=== PATIENT | male | born 1965 | race Caucasian/White ===

== ENCOUNTER 2017-07-02 12:59 | Inpatient (IN) | payer OTHER, MEDICAID ==
[~2017-07-02] VITALS: Ht 188 cm; Wt 85.0 kg
[2017-07-02 13:00] VITALS: O2SAT 100
[2017-07-02 13:06] VITALS: O2SAT 97
[2017-07-02] MEDS ORDERED: DIPHTH/TETANUS/ACEL PERTUSSIS (BOOSTER) 0.5 ML VIAL/PFS IM ONE (13:12)
[2017-07-02] MEDS ORDERED: ceFAZolin 2 GM PREMIX 50 ML ONE (13:12)
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
[2017-07-02] MEDS ORDERED: LIDOCAINE 2%/EPINEPHrine 1:100,000 20ML MDV NERV BLOCK ONE (13:15)
[2017-07-02 13:20] LABS: AUTOMATED NEUTROPHIL # 6.9 TH/MM3 (1.8-7.7); BASOPHIL # 0.1 TH/MM3 (0-0.2); BASOPHIL % 0.6 % (0.0-2.0); EOSINOPHIL # 0.2 TH/MM3 (0-0.4); EOSINOPHIL % 2.2 % (0.0-4.0); HEMO FLAGS DIFF FINAL; LYMPH % 24.3 % (9.0-44.0); LYMPHOCYTE # 2.5 TH/MM3 (1.0-4.8); MEAN CELL VOLUME 88.7 FL (80.0-100.0); MEAN CORPUSCULAR HEMOGLOBIN 29.7 PG (27.0-34.0); MEAN CORPUSCULAR HGB CONC 33.5 % (32.0-36.0); MONO % 6.3 % (0.0-8.0); NEUT % 66.6 % (16.0-70.0); PLATELET COUNT 232 TH/MM3 (150-450); RED BLOOD COUNT 4.63 MIL/MM3 (4.50-5.90); RED CELL DISTRIBUTION WIDTH 13.9 % (11.6-17.2); WHITE BLOOD COUNT 10.4 TH/MM3 (4.0-11.0)
[2017-07-02 13:25] LABS: I-STAT POTASSIUM 4.1 MMOL/L (3.5-4.9); I-STAT SODIUM 142 MMOL/L (138-146)
[2017-07-02 13:29] LABS: APTT (PATIENT) 23.7 SEC (24.3-30.1); PROTHROMBIN TIME - PATIENT 11.3 SEC (9.8-11.6)
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
[2017-07-02 13:42] LABS: ALCOHOL LESS THAN 3 MG/DL (0-5)
[2017-07-02] MEDS ORDERED: IOHEXOL 350 MG/ML 10 ML VIAL (for RAD DIAG) IVCONTRAST ONE (13:51)
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
[2017-07-02 14:00] VITALS: BP 167/79; PULSE 99; RESP 22; O2SAT 99
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
--- NOTE | 2017-07-02 14:45 | RADRPT ---
EXAM DATE/TIME: 07/02/2017 14:13 [facility] COMPARISON: No previous studies available for comparison. INDICATIONS : Left hand,first digit pain post HALFWAY. MEDICAL HISTORY : None. SURGICAL HISTORY : None. ENCOUNTER: Initial ACUITY: 1 day PAIN SCORE: 8/10 LOCATION: Left hand, first digit. FINDINGS: 3 views of the left thumb reveal acute dislocation at the interphalangeal joint. No discrete fracture seen on these images. Soft tissue swelling is mild. CONCLUSION: Interphalangeal joint dislocation at the thumb. Rob Guevara Jr., MD on July 02, 2017 at 14:43 Board Certified Radiologist. This report was verified electronically.
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
--- NOTE | 2017-07-02 15:32 | RADRPT ---
EXAM DATE/TIME: 07/02/2017 15:21 [facility] COMPARISON: FINGER LEFT 1ST DIGIT ([id number]), July 02, 2017, 14:13. INDICATIONS : Post reduction of the left first digit. MEDICAL HISTORY : None. SURGICAL HISTORY : None. ENCOUNTER: Subsequent ACUITY: 1 day PAIN SCORE: 0/10 LOCATION: Left thumb FINDINGS: 2 views of left thumb reveal successful reduction of the previously seen dislocation at the interphal angeal joint. No discrete fracture seen. CONCLUSION: Successful reduction. Rob Guevara Jr., MD on July 02, 2017 at 15:30 Board Certified Radiologist. This report was verified electronically.
[2017-07-02] MEDS ORDERED: ENALAPRILAT 1.25 MG/ML VIAL IV PUSH PRN (17:15)
[2017-07-02] MEDS ORDERED: HYDROmorphone HCL PF 1 MG/ML VIAL IVP PRN (17:15)
[2017-07-02] MEDS ORDERED: ONDANSETRON HCL 4 MG/2 ML VIAL IV PUSH PRN (17:15)
[2017-07-02] MEDS ORDERED: MAGNESIUM HYDROXIDE SUSP 30 ML CUP PO PRN (17:15)
[2017-07-02] MEDS ORDERED: SODIUM CHLORIDE 0.9% FLUSH 10 ML FLUSH IV FLUSH PRN (17:15)
[2017-07-02] MEDS ORDERED: ACETAMINOPHEN/HYDROcodone 325 MG/5 MG TAB PO PRN ×2 (17:15)
[2017-07-02] MEDS: SODIUM CHLOR 0.9% 1000 ML INJ 1,000 ML IV SCH (18:00)
[2017-07-02] MEDS: PANTOPRAZOLE SODIUM 40 MG VIAL IVP SCH (18:00)
[2017-07-02 19:00] VITALS: BP 146/78; PULSE 87; RESP 17; TEMP 97.3; O2SAT 99
[2017-07-02] MEDS ORDERED: LACTULOSE SYRUP 20 GM/30 ML CUP PO PRN (19:15)
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
[2017-07-02] MEDS: DOCUSATE SODIUM 50 MG/SENNA 8.6 MG TAB PO SCH (20:28)
[2017-07-02] MEDS ORDERED: METOPROLOL TARTRATE 25 MG TAB PO PRN (23:45)
[2017-07-02] MEDS ORDERED: POVIDONE IODINE 5% (ANTISEPSIS KIT) 4 APPLICATIONS EACH NARE PRN (23:45)
[2017-07-02] MEDS ORDERED: LACTATED RINGER'S 1000 ML IV PRN (23:45)
[2017-07-02] MEDS ORDERED: SODIUM CHLORID 0.9% 500 ML IV PRN (23:45)
[2017-07-02] MEDS ORDERED: CHLORHEXIDINE GLUCONATE 2 % 1 PACK (2 CLOTHS) TOPICAL PRN (23:45)
[2017-07-02] MEDS ORDERED: INSULIN HUMAN REGULAR 1,000 UNITS/10 ML VIAL SQ PRN (23:45)
[2017-07-03] VITALS (7 sets, daily range): BP systolic 109–138; BP diastolic 61–87; PULSE 78–82; RESP 16–18; TEMP 97–98.3; O2SAT 96–100
[2017-07-03] MEDS: SODIUM CHLOR 0.9% 1000 ML INJ 1,000 ML IV SCH ×3 (05:26→19:44)
[2017-07-03 07:02] LABS: AUTOMATED NEUTROPHIL # 8.6 TH/MM3 (1.8-7.7); BASOPHIL % 0.2 % (0.0-2.0); EOSINOPHIL # 0.1 TH/MM3 (0-0.4); EOSINOPHIL % 0.7 % (0.0-4.0); HEMATOCRIT 37.4 % (39.0-51.0); HEMO FLAGS DIFF FINAL; LYMPH % 21.4 % (9.0-44.0); LYMPHOCYTE # 2.7 TH/MM3 (1.0-4.8); MEAN CELL VOLUME 89.8 FL (80.0-100.0); MEAN CORPUSCULAR HEMOGLOBIN 29.8 PG (27.0-34.0); MEAN CORPUSCULAR HGB CONC 33.2 % (32.0-36.0); MONO % 9.1 % (0.0-8.0); NEUT % 68.6 % (16.0-70.0); PLATELET COUNT 199 TH/MM3 (150-450); RED BLOOD COUNT 4.16 MIL/MM3 (4.50-5.90); RED CELL DISTRIBUTION WIDTH 13.8 % (11.6-17.2); WHITE BLOOD COUNT 12.6 TH/MM3 (4.0-11.0)
[2017-07-03 07:18] LABS: ALT (GPT) 27 U/L (12-78); ANION GAP 7 MEQ/L (5-15); AST (GOT) 17 U/L (15-37); BICARBONATE 23.4 MEQ/L (21.0-32.0); BLOOD UREA NITROGEN 10 MG/DL (7-18); CHLORIDE 108 MEQ/L (98-107); GLOMERULAR FILTRATION RATE 100 ML/MIN (>89); POTASSIUM 3.7 MEQ/L (3.5-5.1); SODIUM (NA) 138 MEQ/L (136-145)
[2017-07-03 07:20] LABS: ALKALINE PHOSPHATASE 60 U/L (45-117); TOTAL BILIRUBIN ADULT 0.6 MG/DL (0.2-1.0)
[2017-07-03] MEDS: DOCUSATE SODIUM 50 MG/SENNA 8.6 MG TAB PO SCH ×2 (09:00→22:51)
--- NOTE | 2017-07-03 12:18 | OTSOAPIP ---
RECEIVED OCCUPATIONAL THERAPY ORDERS. PATIENT IS AWAITING SURGICAL INTERVENTION FOR RIGHT UPPER EXTREMITY THIS DATE. WILL DEFER EVALUATION UNTIL POST SURGERY. INTERDISCIPLINARY COMMUNICATION: REVIEWED ELECTRONIC MEDICAL RECORD Therapist: Marcelle Barnett OTR/L Signature on file
[2017-07-03] MEDS ORDERED: ROCURONIUM INJ 50 MG/5 ML SYRINGE IV PUSH ONE (13:23)
[2017-07-03] MEDS ORDERED: ONDANSETRON HCL 4 MG/2 ML VIAL IV PUSH ONE (13:23)
[2017-07-03] MEDS ORDERED: MIDAZOLAM HCL 2 MG/2 ML VIAL IV ONE (13:23)
[2017-07-03] MEDS ORDERED: PHENYLEPH/NS 1000 MCG/10 ML SYR IV ONE (13:23)
[2017-07-03] MEDS ORDERED: GLYCOPYRROLATE 1 MG/5 ML SYRINGE IV PUSH ONE (13:23)
[2017-07-03] MEDS ORDERED: NEOSTIGMINE 3 MG/3 ML SYR IV ONE (13:23)
[2017-07-03] MEDS ORDERED: DEXAMETHASONE SOD PHOS 4 MG/ML VIAL IV ONE (13:23)
[2017-07-03] MEDS ORDERED: ePHEDrine/NS 25 MG/5 ML SYR IV ONE (13:23)
[2017-07-03] MEDS ORDERED: PROPOFOL 200 MG/20 ML AMP IV ONE (13:23)
[2017-07-03] MEDS ORDERED: LACTATED RINGER'S 1000 ML INJ 1,000 ML IV ONE (13:23)
[2017-07-03] MEDS ORDERED: LIDOCAINE HCL 1% PF 5 ML AMPULE OTHER ONE (13:23)
--- NOTE | 2017-07-03 14:06 | HHI.PR ---
Subjective Subjective Notes Surgery today with Orthopedics Pain controlled Objective Vitals/I&O Vital Signs Date Time Temp Pulse Resp B/P (MAP) Pulse Ox O2 Delivery O2 Flow Rate FiO2 07/03/17 11:29 98.3 81 18 138/80 (99) 97 07/02/17 14:00 Nasal Cannula 2.00 07/02/17 13:06 21 Labs Laboratory Tests Test 07/03/17 05:32 White Blood Count 12.6 Red Blood Count 4.16 Hemoglobin 12.4 Hematocrit 37.4 Mean Corpuscular Volume 89.8 Mean Corpuscular Hemoglobin 29.8 Mean Corpuscular Hemoglobin Concent 33.2 Red Cell Distribution Width 13.8 Platelet Count 199 Mean Platelet Volume 9.8 Neutrophils (%) (Auto) 68.6 Lymphocytes (%) (Auto) 21.4 Monocytes (%) (Auto) 9.1 Eosinophils (%) (Auto) 0.7 Basophils (%) (Auto) 0.2 Neutrophils # (Auto) 8.6 Lymphocytes # (Auto) 2.7 Monocytes # (Auto) 1.2 Eosinophils # (Auto) 0.1 Basophils # (Auto) 0.0 CBC Comment DIFF FINAL Differential Comment Blood Urea Nitrogen 10 Creatinine 0.82 Random Glucose 105 Total Protein 6.9 Albumin 3.5 Calcium Level 8.6 Alkaline Phosphatase 60 Aspartate Amino Transf (AST/SGOT) 17 Alanine Aminotransferase (ALT/SGPT) 27 Total Bilirubin 0.6 Sodium Level 138 Potassium Level 3.7 Chloride Level 108 Carbon Dioxide Level 23.4 Anion Gap 7 Estimat Glomerular Filtration Rate 100 Radiology Last Impressions Finger X-Ray 07/02/17 5592 Signed Impressions: Service Date/Time: Sunday, July 02, 2017 15:21 - CONCLUSION: Successful reduction. Rob Guevara Jr., MD Pelvis X-Ray 07/02/17 1309 Signed Impressions: Service Date/Time: Sunday, July 02, 2017 13:05 - CONCLUSION: No acute disease. Keven Paz MD Maxillofacial CT 07/02/17 1309 Signed Impressions: Service Date/Time: Sunday, July 02, 2017 13:22 - CONCLUSION: 1. Right supraorbital soft tissue swelling. No radiopaque foreign body or fracture. 2. Chronic ethmoid sinus disease bilaterally. Rob Guevara Jr., MD Head CT 07/02/17 1309 Signed Impressions: Service Date/Time: Sunday, July 02, 2017 13:22 - CONCLUSION: 1. No acute intracranial abnormalities seen. 2. Sinus disease. Keven Paz MD Chest X-Ray 07/02/17 1309 Signed Impressions: Service Date/Time: Sunday, July 02, 2017 13:05 - CONCLUSION: Suspected minimal atelectasis at the lateral left lower lung. Keven Paz MD Chest CT 07/02/17 1309 Signed Impressions: Service Date/Time: Sunday, July 02, 2017 13:37 - CONCLUSION: Normal examination. Rob Guevara Jr., MD ADDENDUM: For discussion of the right shoulder please see the CT of the shoulder dictated separately. Rob Guevara Jr., MD Cervical Spine CT 07/02/17 1309 Signed Impressions: Service Date/Time: Sunday, July 02, 2017 13:22 - CONCLUSION: No acute disease. Keven Paz MD Abdomen/Pelvis CT 07/02/17 1309 Signed Impressions: Service Date/Time: Sunday, July 02, 2017 13:37 - CONCLUSION: Normal examination. Rob Guevara Jr., MD Upper Extremity CT 07/02/17 0000 Signed Impressions: Service Date/Time: Sunday, July 02, 2017 13:40 - CONCLUSION: Comminuted humeral head fracture as detailed above. Rob Guevara Jr., MD Shoulder X-Ray 07/02/17 0000 Signed Impressions: Service Date/Time: Sunday, July 02, 2017 13:05 - CONCLUSION: Proximal right humeral fracture. Keven Paz MD Narrative Exam GENERAL: 51 year old well-nourished, well developed male lying in bed. SKIN: Warm and dry. Facial abrasions noted. HEAD: Normocephalic. EYES: PERRL. ENT: No nasal bleeding or discharge. Mucous membranes pink and moist. NECK: Trachea midline. No JVD. CARDIOVASCULAR: Regular rate and rhythm. RESPIRATORY: No accessory muscle use. Lungs clear and diminished to auscultation. Breath sounds equal bilaterally. GASTROINTESTINAL: Abdomen soft, non-tender, nondistended. + BS. MUSCULOSKELETAL: Extremities without cyanosis, or edema. RUE sling. LEFT thumb splint in place. MAEW, + perfused NEUROLOGICAL: Awake and alert. Normal speech. A/P Assessment and Plan INJURIES: RIGHT eyebrow lac (sutures) RIGHT face lac (sutures) Concussion RIGHT proximal humeral fx LEFT lung contusion LEFT thumb dislocation 07/02: LEFT thumb reduction Diet: Regular Pulm: IS Pain: [place]. Dilaudid IV. Activity: OOB. GI: Protonix IV Bowel: Yanci-colace. PRN Lactulose, MOM. LBM: 0 DVT: SCD's RIGHT eyebrow lac, RIGHT face lac Sutures Cleanse wounds daily with soap and water. Apply bacitracin. Leave open to air. Concussion Supportive care Avoid second head injury Post-concussive education RIGHT proximal humeral fx Orthopedics consulted Pain control Sling Planning for OR today LEFT lung contusion Supportive care Pulmonary toileting Pain control OOB RIGHT thumb dislocation 07/02: LEFT thumb reduction Pain control Splint Plan of care discussed with patient at bedside. Case management consulted to assist with discharge planning. The exam, history, and the medical decision-making described in the above note were completed with the assistance of the mid-level provider. I reviewed and agree with the findings presented. I attest that I had a [id number] encounter with the patient on the same day, and personally performed and documented my assessment and findings in the medical record. Nate Florian Jul 03, 2017 14:06 Frankie Bates MD Jul 05, 2017 13:01
[2017-07-03] MEDS ORDERED: HYDROmorphone HCL PF 2 MG/ML VIAL IV PRN (15:15)
[2017-07-03] MEDS: PANTOPRAZOLE SODIUM 40 MG VIAL IVP SCH (17:40)
[2017-07-03] MEDS ORDERED: VANCOMYCIN HCL 1000 MG VIAL IV ONE (17:55)
[2017-07-03] MEDS ORDERED: ceFAZolin INJ 1,000 MG VIAL ONE (17:57)
[2017-07-03] MEDS ORDERED: GENTAMICIN SULFATE 80 MG/2 ML VIAL IRRIGATION ONE (18:39)
--- NOTE | 2017-07-03 18:56 | PD.OP ---
cc: Solitario Douglas MD Operative Report Date of Surgery: Jul 03, 2017 Preoperative Diagnosis: Displaced right proximal humerus fracture Postoperative Diagnosis: Procedure: Open reduction internal fixation right proximal humerus fracture Surgeon: Solitario Douglas [employer] Technician(s): Varun Romano PA-C The surgical procedure was assisted by my physician video production assistant. My P.A. presence was necessary throughout this case for the manipulation and positioning of the surgical extremity. My P.A. was assisting me throughout the duration of this procedure. The skill set of a physician video production assistant was medically necessary to complete this procedure. During the surgical case the technology coach was working at the back table and the physician video production assistant was directly assisting me. Operation and Findings: Patient was seen and evaluated preoperatively. Patient was found to have a displaced proximal humerus fracture. The risks and benefits of surgical and nonsurgical options were discussed in detail and informed consent was obtained for surgery. Patient was brought to the operating room and placed on or table. IV sedation and GETA were administered by anesthesiologist. Antibiotics were given prior to incision. Operative arm and shoulder were prepped with alcohol followed by Hibiclens and draped usual sterile fashion. Timeout procedure was performed. Procedure began with a 5 inch incision over the anterior shoulder. Cephalic vein was identified. A deltopectoral approach was utilized. The fracture was now visualized. Soft tissue was retracted. A #5 FiberWire suture was placed into the rotator rotator cuff and greater tuberosity. A second #5 FiberWire suture was placed and the lesser tuberosity and subscapularis tendon. Attention was now turned to reduction. Gentle traction was applied. The humeral shaft was reduced to the humeral head. Fracture was manipulated to achieve excellent reduction. A Steinmann pin was placed into the humeral head to door liner helper in reduction. Multiplanar fluoroscopy confirmed well aligned fracture. Multiple K wires were used to hold provisional fixation. A Synthes proximal humerus plate was selected. Plate was provisionally held in place K wires. 3.5 cortical screws were used to compress plate to bone. Fluoroscopy confirmed appropriate plate placement and fracture reduction. Multiple locking screws were now placed in the humeral head. Screws were predrilled and premeasured for appropriate length. Care was taken not to penetrate the articular surface. Additional screws were placed in the humeral shaft. The FiberWire sutures were passed through the holes of the plate and sutured to the plate for additional stability. Final fluoroscopy revealed well aligned fracture with well-placed hardware. Wound was thoroughly irrigated. Fascia was closed with #1 Vicryl, subcutaneous tissues closed with 3-0 Vicryl, and skin was closed with rin. Sterile dressings were applied. Patient was placed into a sling. Patient was awakened and transferred to recovery in stable condition. Needle and sponge counts were correct. Solitario Douglas MD Jul 03, 2017 18:55
[2017-07-03] MEDS ORDERED: ERGOCALCIFEROL (VIT D2) 50,000 UNIT CAP PO SCH (19:00)
[2017-07-03] MEDS ORDERED: diphenhydrAMINE HCL 25 MG CAP PO PRN (19:00)
[2017-07-03] MEDS ORDERED: SODIUM CHLORIDE 0.9% FLUSH 5 ML FLUSH IVF PRN (19:00)
[2017-07-03] MEDS ORDERED: MORPHINE SULFATE 4 MG/ML INJ IV PUSH PRN (19:00)
[2017-07-03] MEDS ORDERED: DO NOT ADM ANY ANTICOAGULANT DRUGS PRN (19:22)
--- NOTE | 2017-07-03 20:01 | RADRPT ---
EXAM DATE/TIME: 07/03/2017 18:44 [facility] COMPARISON: No previous studies available for comparison. INDICATIONS : Right proximal humerus repair with plate and screws. OR. MEDICAL HISTORY : None. SURGICAL HISTORY : None. ENCOUNTER: Initial ACUITY: 1 day PAIN SCORE: Non-responsive. LOCATION: Right proximal humerus FINDINGS: 6 digital films reveal plate and screw fixation of right proximal humerus with intact hardware and sa tisfactory reduction of fracture fragments with anatomic alignment noted. CONCLUSION: Satisfactory operative appearance Keven Fischer MD on July 03, 2017 at 19:59 Board Certified Radiologist. This report was verified electronically.
[2017-07-03] MEDS: SODIUM CHLORIDE 0.9% FLUSH 5 ML FLUSH IVF SCH (21:00)
[2017-07-03] MEDS: ACETAMINOPHEN/HYDROcodone 325 MG/10 MG TAB PO PRN (22:50)
[2017-07-04 00:34] VITALS: BP 136/85; PULSE 100; RESP 16; TEMP 97; O2SAT 98
[2017-07-04] MEDS: ceFAZolin 2 GM PREMIX 50 ML IV SCH ×2 (01:25→08:36)
[2017-07-04 03:30] VITALS: BP 140/90; PULSE 74; RESP 17; TEMP 97.4; O2SAT 99
[2017-07-04] MEDS: ACETAMINOPHEN/HYDROcodone 325 MG/10 MG TAB PO PRN ×3 (03:53→13:03)
[2017-07-04 04:25] VITALS: BP 130/86; PULSE 96; RESP 19; TEMP 99.5; O2SAT 92
[2017-07-04] MEDS ORDERED: HYDR-3580 PO (06:51)
--- NOTE | 2017-07-04 07:20 | PD.ORT.PN ---
Subjective Subjective Remarks Resting comfortably with no new complaints Objective Vitals Vital Signs Date Time Temp Pulse Resp B/P (MAP) Pulse Ox O2 Delivery O2 Flow Rate FiO2 07/04/17 04:25 99.5 96 19 130/86 (101) 92 07/04/17 03:30 97.4 74 17 140/90 (107) 99 07/04/17 00:34 97.0 100 16 136/85 (102) 98 07/03/17 21:31 100 Nasal Cannula 2.00 07/03/17 20:00 97.0 78 16 138/83 (101) 97 07/03/17 20:00 68 15 136/76 (96) 100 Nasal Cannula 2 07/03/17 19:45 66 14 125/74 (91) 100 Nasal Cannula 3 07/03/17 19:30 97.9 78 17 140/84 (102) 100 Nasal Cannula 3 07/03/17 16:00 98.3 82 18 134/87 (103) 97 07/03/17 11:29 98.3 81 18 138/80 (99) 97 07/03/17 07:47 97.9 80 18 136/80 (98) 96 I/O 07/03/17 07/03/17 07/03/17 07/04/17 07/04/17 07/04/17 07:00 15:00 23:00 07:00 15:00 23:00 Intake Total 0 ml 240 ml 2101 ml 480 ml Output Total 50 ml Balance 0 ml 240 ml 2051 ml 480 ml Intake Oral 0 ml 240 ml 120 ml 480 ml IV Total 981 ml Other 1000 ml Output Estimated Blood Loss 50 ml # Voids 1 2 0 2 # Bowel Movements 0 0 0 0 Result Diagram: 07/03/17 0532 07/03/17 0532 Imaging Last 72 hours Impressions Humerus X-Ray 07/03/17 0000 Signed Impressions: Service Date/Time: Monday, July 03, 2017 18:44 - CONCLUSION: Satisfactory operative appearance Keven Fischer MD Finger X-Ray 07/02/17 1454 Signed Impressions: Service Date/Time: Sunday, July 02, 2017 15:21 - CONCLUSION: Successful reduction. Rob Guevara Jr., MD Finger X-Ray 07/02/17 1401 Signed Impressions: Service Date/Time: Sunday, July 02, 2017 14:13 - CONCLUSION: Interphalangeal joint dislocation at the thumb. Rob Guevaar Jr., MD Pelvis X-Ray 07/02/17 1309 Signed Impressions: Service Date/Time: Sunday, July 02, 2017 13:05 - CONCLUSION: No acute disease. Keven Paz MD Maxillofacial CT 07/02/17 1309 Signed Impressions: Service Date/Time: Sunday, July 02, 2017 13:22 - CONCLUSION: 1. Right supraorbital soft tissue swelling. No radiopaque foreign body or fracture. 2. Chronic ethmoid sinus disease bilaterally. Rob Guevara Jr., MD Head CT 07/02/17 1309 Signed Impressions: Service Date/Time: Sunday, July 02, 2017 13:22 - CONCLUSION: 1. No acute intracranial abnormalities seen. 2. Sinus disease. Keven Paz MD Chest X-Ray 07/02/17 130 Signed Impressions: Service Date/Time: Sunday, July 02, 2017 13:05 - CONCLUSION: Suspected minimal atelectasis at the lateral left lower lung. Keven Paz MD Chest CT 07/02/17 1309 Signed Impressions: Service Date/Time: Sunday, July 02, 2017 13:37 - CONCLUSION: Normal examination. Rob Guevara Jr., MD ADDENDUM: For discussion of the right shoulder please see the CT of the shoulder dictated separately. Rob Guevara Jr., MD Cervical Spine CT 07/02/17 1309 Signed Impressions: Service Date/Time: Sunday, July 02, 2017 13:22 - CONCLUSION: No acute disease. Keven Paz MD Abdomen/Pelvis CT 07/02/17 1309 Signed Impressions: Service Date/Time: Sunday, July 02, 2017 13:37 - CONCLUSION: Normal examination. Rob Guevara Jr., MD Upper Extremity CT 07/02/17 0000 Signed Impressions: Service Date/Time: Sunday, July 02, 2017 13:40 - CONCLUSION: Comminuted humeral head fracture as detailed above. Rob Guevara Jr., MD Shoulder X-Ray 07/02/17 0000 Signed Impressions: Service Date/Time: Sunday, July 02, 2017 13:05 - CONCLUSION: Proximal right humeral fracture. Keven Paz MD Objective Remarks Right upper extremity: Clean dry dressings intact. Sling in place. Distally intact sensation with full extension and flexion of all fingers Assessment & Plan Assessment and Plan Closed right proximal humerus fracture ORIF POD 1 Nonweightbearing right upper extremity Sling at all times Physical therapy to show pendulum swings and educate so the patient can replicate at home Dressing change prior to discharge Discharge to home today if pain controlled Follow-up with Dr. Douglas or PA in 2 weeks or orthopedic in [facility] in 2 weeks José Miguel Snyder Jr. Jul 04, 2017 07:20
[2017-07-04 08:00] VITALS: BP 148/92; PULSE 79; RESP 18; TEMP 97.3; O2SAT 98
[2017-07-04] MEDS: CALCIUM/VITAMIN D 250 MG/125 U TAB PO SCH ×2 (08:37→13:03)
[2017-07-04] MEDS: DOCUSATE SODIUM 50 MG/SENNA 8.6 MG TAB PO SCH (08:37)
[2017-07-04] MEDS: SODIUM CHLORIDE 0.9% FLUSH 5 ML FLUSH IVF SCH (08:40)
[2017-07-04] MEDS ORDERED: CHOLECALCIFEROL (VIT D3) 1000 UNIT TAB PO SCH (09:00)
[2017-07-04 12:00] VITALS: BP 148/87; PULSE 90; RESP 18; TEMP 97.8; O2SAT 99
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
== END 2017-07-04 13:55 | disposition home or self-care (01) | DRG 493 ==
LOC: NEPE 12:59 → NEDA 14:39 → N06B 18:18
PROVIDERS: ADMIT Surgery; ATTEND Surgery
PROC: 0HQ1XZZ Repair Face Skin, External Approach (ICD-10-PCS; 2017-07-02)
PROC: 0RSXXZZ Reposition Left Finger Phalangeal Joint, External Approach (ICD-10-PCS; 2017-07-02)
PROC: 0CQ0XZZ Repair Upper Lip, External Approach (ICD-10-PCS; 2017-07-02)
PROC: 08QNXZZ Repair Right Upper Eyelid, External Approach (ICD-10-PCS; 2017-07-02)
PROC: 3E0T3BZ Introduction of Anesthetic Agent into Peripheral Nerves and Plexi, Percutaneous Approach (ICD-10-PCS; 2017-07-02)
PROC: 0PSC04Z Reposition Right Humeral Head with Internal Fixation Device, Open Approach (ICD-10-PCS; principal; 2017-07-03 17:30)
DX: S42.251A Displaced fracture of greater tuberosity of right humerus, initial encounter for closed fracture (principal); S06.0X1A Concussion with loss of consciousness of 30 minutes or less, initial encounter; S27.321A Contusion of lung, unilateral, initial encounter; S01.111A Laceration without foreign body of right eyelid and periocular area, initial encounter; S63.105A Unspecified dislocation of left thumb, initial encounter; S01.411A Laceration without foreign body of right cheek and temporomandibular area, initial encounter; S01.511A Laceration without foreign body of lip, initial encounter; R40.2412 Glasgow coma scale score 13-15, at arrival to emergency department; V28.4XXA Motorcycle driver injured in noncollision transport accident in traffic accident, initial encounter; Y92.411 Interstate highway as the place of occurrence of the external cause
CPT/HCPCS: 70450; 70486; 71010; 71260; 72125; 72170; 73020; 73060; 73140; 73200; 74177; 76000; 80053; 80307; 82435; 82565; 82947; 83605; 84132; 84295; 84520; 85025; 85610; 85730; 86850; 86900; 86901; 90715; 94150; C1713; J0690; J1100; J2250; J2370; J2405; J2710; J3010; J3370; J7030; J7120; Q9967